=== PATIENT | male | born 1950 | race Caucasian/White ===

== ENCOUNTER 2016-10-11 08:39 | Inpatient (IN) | payer OTHER ==
[~2016-10-11] VITALS: Ht 165.1 cm; Wt 89.4 kg
[2016-10-11 08:40] VITALS: BP_SYST 133
[2016-10-11] MEDS ORDERED: NITROGLYCERIN LINGUAL 400 mCg/SPRAY SL SCH (09:00)
[2016-10-11] MEDS ORDERED: ASPIRIN 81 MG TAB.CHEW PO ONE (09:00)
[2016-10-11] MEDS ORDERED: NITROGLYCERIN LINGUAL 400 mCg/SPRAY ONE (09:07)
[2016-10-11 09:13] LABS: BASOPHILS % (AUTO) 0.4 % (0.0-2.0); EOSINOPHILS # (AUTO) 0.1 K/uL (0.0-0.4); EOSINOPHILS % (AUTO) 0.6 % (0.0-4.0); HEMATOCRIT 43.1 % (36-54); HEMOGLOBIN 14.2 g/dL (14.0-18.0); LYMPHOCYTES % (AUTO) 29.2 % (20.5-51.5); MEAN CORPUSCULAR HEMOGLOBIN 28 pg (27-31); MEAN CORPUSCULAR HGB CONC 33 % (32-36); MEAN CORPUSCULAR VOLUME 85 fL (79.0-98.0); MONOCYTES # (AUTO) 0.6 K/uL (0.0-1.0); MONOCYTES % (AUTO) 6.4 % (1.7-9.3); NEUTROPHILS # (AUTO) 6.4 K/uL (1.8-7.7); NEUTROPHILS % (AUTO) 63.4 % (40.0-70.0); PLATELET COUNT (AUTO) 263 K/uL (130-430); RED BLOOD CELL COUNT(AUTO) 5.04 MIL/uL (4.2-6.2); RED CELL DISTRIBUTION WIDTH 12.5 % (9.0-15.0); WHITE BLOOD COUNT (AUTO) 10.1 K/uL (4.8-10.8)
[2016-10-11 09:17] LABS: CALCIUM 8.4 mg/dL (8.4-11.0); CREATININE 0.93 mg/dL (0.55-1.30); POTASSIUM 3.6 mmol/L (3.5-5.1)
[2016-10-11 09:20] LABS: INR 1.1 (0.80-1.20); PROTHROMBIN TIME 11.4 SECS (9.5-12.5)
[2016-10-11 09:21] LABS: ALBUMIN 3.5 g/dL (3.4-4.8); TOTAL BILIRUBIN 1.7 mg/dL (0.0-1.0); TOTAL PROTEIN, SERUM 7.3 g/dL (6.4-8.3)
[2016-10-11] MEDS ORDERED: GLU500 PO (10:07)
[2016-10-11] MEDS ORDERED: LIP20 PO (10:07)
[2016-10-11 12:48] VITALS: BP_SYST 120
[2016-10-11] MEDS ORDERED: ACETAMINOPHEN 325 MG TABLET PO PRN (13:15)
[2016-10-11 16:32] VITALS: BP_SYST 110
[2016-10-11] MEDS: metFORMIN HCL 500 MG TABLET PO SCH (17:36)
[2016-10-11] MEDS: INSULIN REGULAR, HUMAN 100 UNITS/ML, 10 ML VIAL (novoLIN R) SUBCUT PRN ×2 (17:40→22:03)
[2016-10-11 20:00] VITALS: BP_SYST 108
[2016-10-12 00:46] VITALS: BP_SYST 99
[2016-10-12 04:00] VITALS: BP_SYST 113
[2016-10-12] MEDS: INSULIN REGULAR, HUMAN 100 UNITS/ML, 10 ML VIAL (novoLIN R) SUBCUT PRN ×3 (06:36→17:15)
[2016-10-12 08:00] VITALS: BP_SYST 114
[2016-10-12] MEDS: metFORMIN HCL 500 MG TABLET PO SCH ×3 (08:10→17:13)
[2016-10-12] MEDS ORDERED: ASPIRIN 325 MG TABLET PO SCH (09:00)
[2016-10-12] MEDS ORDERED: ATORVASTATIN 20 MG TABLET PO SCH (09:00)
[2016-10-12 12:00] VITALS: BP_SYST 121
[2016-10-12 16:00] VITALS: BP_SYST 114
[2016-10-12 18:02] VITALS: BP_SYST 121
== END 2016-10-12 19:20 | disposition home or self-care (01) | DRG 392 ==
LOC: SED 08:39 → STU 09:56
PROVIDERS: ADMIT Internal Medicine Hospice and Palliative Medicine; ATTEND Internal Medicine Hospice and Palliative Medicine
DX: K21.9 Gastro-esophageal reflux disease without esophagitis (principal); E11.9 Type 2 diabetes mellitus without complications; G89.29 Other chronic pain; I48.91 Unspecified atrial fibrillation; E78.5 Hyperlipidemia, unspecified; Z88.0 Allergy status to penicillin; M54.9 Dorsalgia, unspecified
CPT/HCPCS: 36415; 71010; 80053; 80061; 82962; 83880; 84484; 85025; 85610-TC; 85730-TC; 93005; 93306; 99285; J1815

== ENCOUNTER 2020-03-14 11:34 | Emergency (ER) | payer OTHER, SELFPAY ==
[~2020-03-14] VITALS: Ht 175.3 cm; Wt 99.8 kg
[~2020-03-14 11:34] MED LIST: GLU500 PO; LIP20 PO
[2020-03-14 11:35] VITALS: BP_SYST 115
--- NOTE | 2020-03-14 11:35 | NUR ---
PT TAKEN TO OUTSIDE TRIAGE TENT, TRIAGED AND WILL ASSUME CARE.
--- NOTE | 2020-03-14 11:50 | NUR ---
PT STATES 2 WEEKS WITH COVID SYMPTOMS, FATIGUE, HEADACHES, COUGH, FEVERS. STATES HE HAS NOT SEEN HIS PMD OR GOT TESTED FOR COVID.
--- NOTE | 2020-03-14 12:10 | NUR ---
DR OLMEDO EVALUATING PT IN TRIAGE TENT. AWAITING ORDERS
--- NOTE | 2020-03-14 13:24 | NUR ---
Patient given written and verbal discharge instructions and verbalizes understanding. ER MD discussed with patient the results and treatment provided. Patient in stable condition. ID arm band removed. Rx of PREDNISONE, MOTRIN given. Patient educated on pain management and to follow up with PMD. Pain Scale 0/10. Opportunity for questions provided and answered. Medication side effect fact sheet provided.
== END 2020-03-14 13:25 | disposition home or self-care (01) ==
LOC: SED 11:34
DX: J06.9 Acute upper respiratory infection, unspecified (principal); I10 Essential (primary) hypertension; E11.9 Type 2 diabetes mellitus without complications; E78.5 Hyperlipidemia, unspecified; Z88.0 Allergy status to penicillin; Z20.828 Contact with and (suspected) exposure to other viral communicable diseases
CPT/HCPCS: 99283; U0003

== ENCOUNTER 2020-03-20 05:06 | Inpatient (IN) | payer OTHER, SELFPAY ==
[~2020-03-20] VITALS: Ht 162.6 cm; Wt 90.7 kg
[2020-03-20 05:10] VITALS: BP_SYST 171
[2020-03-20 05:59] LABS: HEMATOCRIT 47.1 % (36-54)
[2020-03-20 06:04] LABS: BASOPHILS # (AUTO) 0.1 K/uL (0.0-0.2); BASOPHILS % (AUTO) 0.3 % (0.0-2.0); LYMPHOCYTES # (AUTO) 3.1 K/uL (1.0-5.5); LYMPHOCYTES % (AUTO) 12.9 % (20.5-51.5); MEAN CORPUSCULAR HEMOGLOBIN 28 pg (27-31); MEAN CORPUSCULAR HGB CONC 34 % (32-36); MEAN CORPUSCULAR VOLUME 82 fL (79.0-98.0); MONOCYTES # (AUTO) 0.9 K/uL (0.0-1.0); MONOCYTES % (AUTO) 3.6 % (1.7-9.3); NEUTROPHILS % (AUTO) 83.2 % (40.0-70.0); PLATELET COUNT (AUTO) 238 K/uL (130-430); RED BLOOD CELL COUNT(AUTO) 5.77 MIL/uL (4.2-6.2); RED CELL DISTRIBUTION WIDTH 13.9 % (9.0-15.0); WHITE BLOOD COUNT (AUTO) 24.1 K/uL (4.8-10.8)
[2020-03-20 06:20] LABS: INR 1.1 (0.80-1.20); PROTHROMBIN TIME 10.9 SECS (9.5-12.5)
[2020-03-20 06:27] LABS: CALCIUM 8.9 mg/dL (8.4-11.0); CREATININE 1.17 mg/dL (0.55-1.30); POTASSIUM 3.9 mmol/L (3.5-5.1)
[2020-03-20] MEDS ORDERED: VANCOMYCIN HCL 1,000 MG in NS 250 ML IV ONE (06:30)
[2020-03-20] MEDS ORDERED: LEVOFLOXACIN 500 MG/D5W 100 ML IV ONE ×2 (06:30→06:51)
[2020-03-20] MEDS ORDERED: NACL 0.9% 1,000 ML IV ONE (06:30)
[2020-03-20 06:34] LABS: ALBUMIN 2.9 g/dL (3.4-4.8); TOTAL BILIRUBIN 1.2 mg/dL (0.0-1.0)
[2020-03-20] MEDS ORDERED: ACETAMINOPHEN 325 MG TABLET PO PRN ×2 (07:30→09:45)
[2020-03-20] MEDS ORDERED: *LOVENOX 1MG/KG Q12H/PHARMACY XX ONE (07:30)
[2020-03-20] MEDS: DEXAMETHASONE SOD PHOSPHATE 10 MG/ML VIAL IVP SCH (08:37)
[2020-03-20] MEDS: ENOXAPARIN SODIUM 100 MG/ML SYRINGE SUBCUT SCH ×2 (09:00→20:28)
[2020-03-20] MEDS ORDERED: ONDANSETRON HCL 4 MG/2 ML VIAL IVP PRN (09:45)
[2020-03-20] MEDS: NORMAL SALINE 5 ML DISP.SYRIN IVF SCH ×2 (11:44→20:58)
[2020-03-20] MEDS ORDERED: INSULIN GLARGINE 100 UNITS/ML 10 ML VIAL ONE (11:49)
[2020-03-20] MEDS: INSULIN REGULAR, HUMAN 100 UNITS/ML, 10 ML VIAL (humuLIN R) SUBCUT PRN ×3 (11:51→20:55)
[2020-03-20] MEDS: metFORMIN HCL 500 MG TABLET PO SCH ×2 (15:50→21:31)
[2020-03-20] MEDS: FAMOTIDINE PF 20 MG/2 ML VIAL IVP SCH (20:26)
[2020-03-20] MEDS: ASCORBIC ACID 500 MG TABLET PO SCH (20:27)
[2020-03-20] MEDS ORDERED: metFORMIN HCL 500 MG TABLET ONE (21:29)
[2020-03-21] MEDS: NORMAL SALINE 5 ML DISP.SYRIN IVF SCH ×3 (06:08→22:00)
[2020-03-21] MEDS: ENOXAPARIN SODIUM 100 MG/ML SYRINGE SUBCUT SCH ×2 (08:29→20:31)
[2020-03-21] MEDS: ASCORBIC ACID 500 MG TABLET PO SCH ×2 (08:30→20:40)
[2020-03-21] MEDS: FAMOTIDINE PF 20 MG/2 ML VIAL IVP SCH ×2 (08:30→20:39)
[2020-03-21] MEDS: ATORVASTATIN 20 MG TABLET PO SCH (08:30)
[2020-03-21] MEDS: DEXAMETHASONE SOD PHOSPHATE 10 MG/ML VIAL IVP SCH (08:31)
[2020-03-21] MEDS: CHOLECALCIFEROL (VITAMIN D3) 5,000 UNIT TABLET PO SCH (08:33)
[2020-03-21] MEDS: metFORMIN HCL 500 MG TABLET PO SCH ×3 (09:42→20:40)
[2020-03-21] MEDS: THIAMINE HCL 100 MG TABLET PO SCH (09:42)
[2020-03-21] MEDS: INSULIN GLARGINE 100 UNITS/ML 10 ML VIAL SUBCUT SCH (09:45)
[2020-03-21] MEDS ORDERED: INSULIN REGULAR, HUMAN 10 UNITS/0.1 ML INJ ONE ×2 (11:15→22:10)
[2020-03-21] MEDS: INSULIN REGULAR, HUMAN 100 UNITS/ML, 10 ML VIAL (humuLIN R) SUBCUT PRN ×3 (11:24→22:09)
[2020-03-21 11:25] LABS: BASOPHILS % (AUTO) 0.1 % (0.0-2.0); EOSINOPHILS % (AUTO) 0.1 % (0.0-4.0); HEMOGLOBIN 13.9 g/dL (14.0-18.0); LYMPHOCYTES # (AUTO) 0.7 K/uL (1.0-5.5); LYMPHOCYTES % (AUTO) 4.6 % (20.5-51.5); MEAN CORPUSCULAR HEMOGLOBIN 27 pg (27-31); MEAN CORPUSCULAR HGB CONC 33 % (32-36); MEAN CORPUSCULAR VOLUME 82 fL (79.0-98.0); MONOCYTES # (AUTO) 0.3 K/uL (0.0-1.0); NEUTROPHILS # (AUTO) 14.6 K/uL (1.8-7.7); NEUTROPHILS % (AUTO) 93.2 % (40.0-70.0); PLATELET COUNT (AUTO) 202 K/uL (130-430); RED BLOOD CELL COUNT(AUTO) 5.12 MIL/uL (4.2-6.2); RED CELL DISTRIBUTION WIDTH 13.9 % (9.0-15.0); WHITE BLOOD COUNT (AUTO) 15.7 K/uL (4.8-10.8)
[2020-03-21 11:28] LABS: ALBUMIN 2.2 g/dL (3.4-4.8); CALCIUM 8.3 mg/dL (8.4-11.0); CREATININE 0.82 mg/dL (0.55-1.30); POTASSIUM 4.3 mmol/L (3.5-5.1); TOTAL BILIRUBIN 0.9 mg/dL (0.0-1.0)
[2020-03-21] MEDS: MEROPENEM 1 GM in NS 100 ML IV SCH (20:41)
[2020-03-22 05:25] LABS: BASOPHILS % (AUTO) 0.3 % (0.0-2.0); HEMATOCRIT 39.3 % (36-54); HEMOGLOBIN 13.1 g/dL (14.0-18.0); LYMPHOCYTES % (AUTO) 8.1 % (20.5-51.5); MEAN CORPUSCULAR HEMOGLOBIN 27 pg (27-31); MEAN CORPUSCULAR HGB CONC 33 % (32-36); MEAN CORPUSCULAR VOLUME 81 fL (79.0-98.0); MONOCYTES # (AUTO) 0.3 K/uL (0.0-1.0); MONOCYTES % (AUTO) 2.6 % (1.7-9.3); NEUTROPHILS # (AUTO) 10.5 K/uL (1.8-7.7); PLATELET COUNT (AUTO) 251 K/uL (130-430); RED BLOOD CELL COUNT(AUTO) 4.83 MIL/uL (4.2-6.2); RED CELL DISTRIBUTION WIDTH 14.5 % (9.0-15.0); WHITE BLOOD COUNT (AUTO) 11.8 K/uL (4.8-10.8)
[2020-03-22] MEDS: MEROPENEM 1 GM in NS 100 ML IV SCH ×3 (05:41→22:14)
[2020-03-22 05:50] LABS: ALBUMIN 2.2 g/dL (3.4-4.8); CALCIUM 8.5 mg/dL (8.4-11.0); CREATININE 0.82 mg/dL (0.55-1.30); POTASSIUM 4.2 mmol/L (3.5-5.1); TOTAL BILIRUBIN 0.7 mg/dL (0.0-1.0)
[2020-03-22 06:02] LABS: C-REACTIVE PROTEIN QUANT 18.4 mg/dL (0-0.5)
[2020-03-22] MEDS: NORMAL SALINE 5 ML DISP.SYRIN IVF SCH ×3 (06:34→22:23)
[2020-03-22 07:27] VITALS: BP_SYST 116
[2020-03-22] MEDS: DEXAMETHASONE SOD PHOSPHATE 10 MG/ML VIAL IVP SCH (09:17)
[2020-03-22] MEDS: FAMOTIDINE PF 20 MG/2 ML VIAL IVP SCH ×2 (09:18→22:11)
[2020-03-22] MEDS: metFORMIN HCL 500 MG TABLET PO SCH ×3 (09:22→22:11)
[2020-03-22] MEDS: ASCORBIC ACID 500 MG TABLET PO SCH ×2 (09:23→22:12)
[2020-03-22] MEDS: CHOLECALCIFEROL (VITAMIN D3) 5,000 UNIT TABLET PO SCH (09:23)
[2020-03-22] MEDS: THIAMINE HCL 100 MG TABLET PO SCH (09:23)
[2020-03-22] MEDS: ATORVASTATIN 20 MG TABLET PO SCH (09:23)
[2020-03-22] MEDS ORDERED: INSULIN GLARGINE 100 UNITS/ML 10 ML VIAL ONE (09:30)
[2020-03-22] MEDS: ENOXAPARIN SODIUM 100 MG/ML SYRINGE SUBCUT SCH ×2 (09:32→22:13)
[2020-03-22] MEDS: INSULIN GLARGINE 100 UNITS/ML 10 ML VIAL SUBCUT SCH (09:34)
[2020-03-22] MEDS: INSULIN REGULAR, HUMAN 100 UNITS/ML, 10 ML VIAL (humuLIN R) SUBCUT PRN (17:34)
[2020-03-23] MEDS: NORMAL SALINE 5 ML DISP.SYRIN IVF SCH ×3 (06:13→23:06)
[2020-03-23] MEDS: MEROPENEM 1 GM in NS 100 ML IV SCH ×3 (06:14→23:07)
[2020-03-23 07:51] LABS: BASOPHILS % (AUTO) 0.3 % (0.0-2.0); EOSINOPHILS # (AUTO) 0.1 K/uL (0.0-0.4); EOSINOPHILS % (AUTO) 0.5 % (0.0-4.0); HEMATOCRIT 41.7 % (36-54); HEMOGLOBIN 13.9 g/dL (14.0-18.0); LYMPHOCYTES % (AUTO) 6.7 % (20.5-51.5); MEAN CORPUSCULAR HEMOGLOBIN 27 pg (27-31); MEAN CORPUSCULAR HGB CONC 33 % (32-36); MEAN CORPUSCULAR VOLUME 82 fL (79.0-98.0); MONOCYTES # (AUTO) 0.4 K/uL (0.0-1.0); NEUTROPHILS # (AUTO) 12.9 K/uL (1.8-7.7); NEUTROPHILS % (AUTO) 89.5 % (40.0-70.0); PLATELET COUNT (AUTO) 327 K/uL (130-430); RED BLOOD CELL COUNT(AUTO) 5.09 MIL/uL (4.2-6.2); RED CELL DISTRIBUTION WIDTH 14.2 % (9.0-15.0); WHITE BLOOD COUNT (AUTO) 14.4 K/uL (4.8-10.8)
[2020-03-23 08:26] LABS: ALBUMIN 2.2 g/dL (3.4-4.8); CALCIUM 8.6 mg/dL (8.4-11.0); CREATININE 0.82 mg/dL (0.55-1.30); POTASSIUM 3.9 mmol/L (3.5-5.1); TOTAL BILIRUBIN 0.9 mg/dL (0.0-1.0)
[2020-03-23] MEDS: metFORMIN HCL 500 MG TABLET PO SCH ×3 (08:32→23:03)
[2020-03-23] MEDS: FAMOTIDINE PF 20 MG/2 ML VIAL IVP SCH ×2 (08:32→23:02)
[2020-03-23] MEDS: DEXAMETHASONE SOD PHOSPHATE 10 MG/ML VIAL IVP SCH (08:32)
[2020-03-23] MEDS: THIAMINE HCL 100 MG TABLET PO SCH (08:33)
[2020-03-23] MEDS: ASCORBIC ACID 500 MG TABLET PO SCH ×2 (08:33→23:03)
[2020-03-23] MEDS: ATORVASTATIN 20 MG TABLET PO SCH (08:33)
[2020-03-23] MEDS: ENOXAPARIN SODIUM 100 MG/ML SYRINGE SUBCUT SCH ×2 (08:34→23:05)
[2020-03-23] MEDS ORDERED: INSULIN GLARGINE 100 UNITS/ML 10 ML VIAL ONE (08:38)
[2020-03-23] MEDS: INSULIN GLARGINE 100 UNITS/ML 10 ML VIAL SUBCUT SCH (08:39)
[2020-03-23] MEDS: CHOLECALCIFEROL (VITAMIN D3) 5,000 UNIT TABLET PO SCH (09:11)
[2020-03-23] MEDS: INSULIN REGULAR, HUMAN 100 UNITS/ML, 10 ML VIAL (humuLIN R) SUBCUT PRN ×2 (11:28→16:39)
[2020-03-24] MEDS ORDERED: LORazepam 2 MG/ML VIAL ONE ×2 (03:58→04:44)
[2020-03-24] MEDS ORDERED: LORazepam 2 MG/ML VIAL IM ONE (04:00)
[2020-03-24] MEDS ORDERED: LORazepam 2 MG/ML VIAL IVP ONE (05:00)
[2020-03-24] MEDS ORDERED: KETAMINE 30 MG/3 ML SYRINGE ONE (05:24)
[2020-03-24] MEDS ORDERED: KETAMINE 30 MG/3 ML SYRINGE 30 MG in NS 100 ML IV ONE (05:30)
[2020-03-24] MEDS: NORMAL SALINE 5 ML DISP.SYRIN IVF SCH ×3 (05:49→21:21)
[2020-03-24] MEDS: MEROPENEM 1 GM in NS 100 ML IV SCH ×3 (05:54→21:18)
[2020-03-24] MEDS ORDERED: HALOPERIDOL LACTATE 5 MG/ML VIAL IVP ONE (07:15)
[2020-03-24] MEDS ORDERED: HALOPERIDOL LACTATE 5 MG/ML VIAL ONE (07:25)
[2020-03-24] MEDS: ATORVASTATIN 20 MG TABLET PO SCH (08:10)
[2020-03-24] MEDS: metFORMIN HCL 500 MG TABLET PO SCH ×3 (08:11→21:00)
[2020-03-24 08:12] LABS: BASOPHILS # (AUTO) 0.1 K/uL (0.0-0.2); BASOPHILS % (AUTO) 0.4 % (0.0-2.0); EOSINOPHILS % (AUTO) 0.2 % (0.0-4.0); HEMATOCRIT 44.4 % (36-54); HEMOGLOBIN 14.6 g/dL (14.0-18.0); LYMPHOCYTES # (AUTO) 1.2 K/uL (1.0-5.5); LYMPHOCYTES % (AUTO) 6.2 % (20.5-51.5); MEAN CORPUSCULAR HEMOGLOBIN 27 pg (27-31); MEAN CORPUSCULAR HGB CONC 33 % (32-36); MEAN CORPUSCULAR VOLUME 83 fL (79.0-98.0); MONOCYTES # (AUTO) 0.6 K/uL (0.0-1.0); NEUTROPHILS # (AUTO) 17.3 K/uL (1.8-7.7); NEUTROPHILS % (AUTO) 90.2 % (40.0-70.0); PLATELET COUNT (AUTO) 391 K/uL (130-430); RED BLOOD CELL COUNT(AUTO) 5.34 MIL/uL (4.2-6.2); RED CELL DISTRIBUTION WIDTH 14.4 % (9.0-15.0); WHITE BLOOD COUNT (AUTO) 19.2 K/uL (4.8-10.8)
[2020-03-24] MEDS: THIAMINE HCL 100 MG TABLET PO SCH (08:13)
[2020-03-24] MEDS: ASCORBIC ACID 500 MG TABLET PO SCH ×2 (08:13→21:00)
[2020-03-24] MEDS: FAMOTIDINE PF 20 MG/2 ML VIAL IVP SCH ×2 (08:13→21:08)
[2020-03-24] MEDS: DEXAMETHASONE SOD PHOSPHATE 10 MG/ML VIAL IVP SCH (08:13)
[2020-03-24] MEDS: CHOLECALCIFEROL (VITAMIN D3) 5,000 UNIT TABLET PO SCH (08:14)
[2020-03-24] MEDS: ENOXAPARIN SODIUM 100 MG/ML SYRINGE SUBCUT SCH ×2 (08:15→21:10)
[2020-03-24] MEDS: INSULIN GLARGINE 100 UNITS/ML 10 ML VIAL SUBCUT SCH (08:28)
[2020-03-24 08:30] LABS: ALBUMIN 2.5 g/dL (3.4-4.8); CALCIUM 8.9 mg/dL (8.4-11.0); CREATININE 1.2 mg/dL (0.55-1.30); POTASSIUM 3.8 mmol/L (3.5-5.1); TOTAL BILIRUBIN 1.4 mg/dL (0.0-1.0)
[2020-03-24] MEDS: INSULIN REGULAR, HUMAN 100 UNITS/ML, 10 ML VIAL (humuLIN R) SUBCUT PRN ×3 (08:30→16:11)
[2020-03-24] MEDS: DEXMEDETOMIDINE HCL 200 MCG in NS 48 ML IV PRN ×2 (10:15→14:57)
[2020-03-24 10:18] LABS: INR 1.2 (0.80-1.20); PROTHROMBIN TIME 11.8 SECS (9.5-12.5)
[2020-03-24 10:52] LABS: C-REACTIVE PROTEIN QUANT 12.2 mg/dL (0-0.5)
[2020-03-24] MEDS ORDERED: NACL 0.9% 1,000 ML IV ONE (14:30)
[2020-03-24] MEDS: NACL 0.9% 1,000 ML IV SCH (14:58)
[2020-03-24] MEDS: LORazepam 2 MG/ML VIAL IVP PRN (17:55)
[2020-03-24] MEDS: DEXMEDETOMIDINE HCL 400 MCG in NS 96 ML IV PRN (19:28)
[2020-03-25] VITALS (29 sets, daily range): BP systolic 80–153
[2020-03-25] MEDS: DEXMEDETOMIDINE HCL 400 MCG in NS 96 ML IV PRN (00:18)
[2020-03-25] MEDS: NACL 0.9% 1,000 ML IV SCH ×2 (00:18→10:14)
[2020-03-25] MEDS ORDERED: LORazepam 2 MG/ML VIAL ONE (03:27)
[2020-03-25] MEDS ORDERED: MIDAZOLAM HCL IN 0.9 % NACL/PF 50 ML IV PRN (04:15)
[2020-03-25] MEDS ORDERED: PROPOFOL DRIP 100 ML IV PRN ×2 (04:15→05:15)
[2020-03-25] MEDS ORDERED: LORazepam 2 MG/ML VIAL IVP ONE (04:15)
[2020-03-25] MEDS ORDERED: NOREPINEPHRINE BITARTRATE 4 MG in NS 246 ML IV PRN (04:30)
[2020-03-25] MEDS: NOREPINEPHRINE BITARTRATE 4 MG in NS 246 ML IV PRN (05:10)
[2020-03-25] MEDS: MEROPENEM 1 GM in NS 100 ML IV SCH ×3 (08:41→21:49)
[2020-03-25] MEDS: CHOLECALCIFEROL (VITAMIN D3) 5,000 UNIT TABLET PO SCH (08:42)
[2020-03-25] MEDS: NORMAL SALINE 5 ML DISP.SYRIN IVF SCH ×3 (08:42→22:00)
[2020-03-25] MEDS: ASCORBIC ACID 500 MG TABLET PO SCH (08:42)
[2020-03-25] MEDS: ATORVASTATIN 20 MG TABLET PO SCH (08:43)
[2020-03-25] MEDS: metFORMIN HCL 500 MG TABLET PO SCH ×2 (08:43→14:10)
[2020-03-25] MEDS: THIAMINE HCL 100 MG TABLET PO SCH (08:43)
[2020-03-25] MEDS: ENOXAPARIN SODIUM 100 MG/ML SYRINGE SUBCUT SCH ×2 (08:44→21:28)
[2020-03-25] MEDS: INSULIN GLARGINE 100 UNITS/ML 10 ML VIAL SUBCUT SCH (08:45)
[2020-03-25] MEDS: DEXAMETHASONE SOD PHOSPHATE 10 MG/ML VIAL IVP SCH (08:47)
[2020-03-25] MEDS: FAMOTIDINE PF 20 MG/2 ML VIAL IVP SCH ×2 (08:48→21:26)
[2020-03-25 08:51] LABS: ALBUMIN 1.8 g/dL (3.4-4.8); CALCIUM 7.8 mg/dL (8.4-11.0); CREATININE 0.7 mg/dL (0.55-1.30); POTASSIUM 4.2 mmol/L (3.5-5.1); TOTAL BILIRUBIN 0.6 mg/dL (0.0-1.0)
[2020-03-25] MEDS ORDERED: ETOMIDATE 20 MG/ 10 ML VIAL (AMIDATE) IVP ONE (09:08)
[2020-03-25] MEDS ORDERED: ROCURONIUM BROMIDE 10 MG/ML (ZEMURON) IV ONE (09:08)
[2020-03-25 09:10] LABS: BASOPHILS % (AUTO) 0.1 % (0.0-2.0); EOSINOPHILS % (AUTO) 0.3 % (0.0-4.0); HEMATOCRIT 36.2 % (36-54); LYMPHOCYTES # (AUTO) 0.9 K/uL (1.0-5.5); LYMPHOCYTES % (AUTO) 6.8 % (20.5-51.5); MEAN CORPUSCULAR HEMOGLOBIN 27 pg (27-31); MEAN CORPUSCULAR HGB CONC 33 % (32-36); MEAN CORPUSCULAR VOLUME 83 fL (79.0-98.0); MONOCYTES # (AUTO) 0.2 K/uL (0.0-1.0); MONOCYTES % (AUTO) 1.5 % (1.7-9.3); NEUTROPHILS # (AUTO) 12.7 K/uL (1.8-7.7); NEUTROPHILS % (AUTO) 91.3 % (40.0-70.0); PLATELET COUNT (AUTO) 271 K/uL (130-430); RED BLOOD CELL COUNT(AUTO) 4.39 MIL/uL (4.2-6.2); RED CELL DISTRIBUTION WIDTH 14.5 % (9.0-15.0)
[2020-03-25 09:33] LABS: WHITE BLOOD COUNT (AUTO) 13.9 K/uL (4.8-10.8)
[2020-03-25] MEDS: MORPHINE I.V. DRIP 100 ML IV PRN (10:13)
[2020-03-25] MEDS: MIDAZOLAM HCL IN 0.9 % NACL/PF 50 ML IV PRN (10:13)
[2020-03-25] MEDS ORDERED: NS 250 ML IV ONE (11:30)
[2020-03-25] MEDS: LORazepam 2 MG/ML VIAL IVP PRN ×2 (12:02→20:23)
[2020-03-25] MEDS ORDERED: NS 500 ML IV ONE ×2 (18:00→23:30)
[2020-03-25] MEDS ORDERED: NS 500 ML IV PRN (18:30)
[2020-03-25] MEDS ORDERED: COMMUNICATION ORDER XX ONE (21:00)
[2020-03-25] MEDS ORDERED: ACETAMINOPHEN CHILDREN'S 160 MG/5 ML ORAL.SUSP NG PRN (21:15)
[2020-03-25] MEDS: metFORMIN HCL 500 MG TABLET NG SCH (21:26)
[2020-03-25] MEDS: ASCORBIC ACID 500 MG TABLET NG SCH (21:27)
[2020-03-25] MEDS ORDERED: VASOPRESSIN 20 UNITS in NS 99 ML IV PRN (22:45)
[2020-03-25] MEDS ORDERED: NS 500 ML IV SCH (22:45)
[2020-03-25] MEDS: levETIRAcetam 500 MG in NS 100 ML IV SCH (23:31)
[2020-03-26] VITALS (32 sets, daily range): BP systolic 91–132
[2020-03-26] MEDS: MORPHINE I.V. DRIP 100 ML IV PRN (02:07)
[2020-03-26] MEDS: MEROPENEM 1 GM in NS 100 ML IV SCH ×3 (06:05→21:37)
[2020-03-26] MEDS: NORMAL SALINE 5 ML DISP.SYRIN IVF SCH ×3 (06:07→22:00)
[2020-03-26 07:42] LABS: BASOPHILS % (AUTO) 0.3 % (0.0-2.0); EOSINOPHILS # (AUTO) 0.2 K/uL (0.0-0.4); EOSINOPHILS % (AUTO) 1.5 % (0.0-4.0); HEMATOCRIT 39.1 % (36-54); HEMOGLOBIN 12.7 g/dL (14.0-18.0); LYMPHOCYTES # (AUTO) 0.6 K/uL (1.0-5.5); LYMPHOCYTES % (AUTO) 4.7 % (20.5-51.5); MEAN CORPUSCULAR HEMOGLOBIN 27 pg (27-31); MEAN CORPUSCULAR HGB CONC 33 % (32-36); MEAN CORPUSCULAR VOLUME 83 fL (79.0-98.0); MONOCYTES # (AUTO) 0.3 K/uL (0.0-1.0); MONOCYTES % (AUTO) 2.1 % (1.7-9.3); NEUTROPHILS # (AUTO) 12.4 K/uL (1.8-7.7); NEUTROPHILS % (AUTO) 91.4 % (40.0-70.0); PLATELET COUNT (AUTO) 343 K/uL (130-430); RED BLOOD CELL COUNT(AUTO) 4.68 MIL/uL (4.2-6.2); WHITE BLOOD COUNT (AUTO) 13.5 K/uL (4.8-10.8)
[2020-03-26 08:20] LABS: ALBUMIN 1.8 g/dL (3.4-4.8); CALCIUM 7.8 mg/dL (8.4-11.0); CREATININE 1.09 mg/dL (0.55-1.30); POTASSIUM 4.3 mmol/L (3.5-5.1); TOTAL BILIRUBIN 0.5 mg/dL (0.0-1.0)
[2020-03-26] MEDS ORDERED: ENOXAPARIN SODIUM 40 MG/0.4 ML SYRINGE SUBCUT SCH (09:00)
[2020-03-26] MEDS: levETIRAcetam 500 MG in NS 100 ML IV SCH ×2 (09:26→21:37)
[2020-03-26] MEDS: MIDAZOLAM HCL IN 0.9 % NACL/PF 50 ML IV PRN ×2 (09:27→17:51)
[2020-03-26] MEDS: INSULIN GLARGINE 100 UNITS/ML 10 ML VIAL SUBCUT SCH (09:29)
[2020-03-26] MEDS: ATORVASTATIN 20 MG TABLET NG SCH (09:30)
[2020-03-26] MEDS: metFORMIN HCL 500 MG TABLET NG SCH ×3 (09:30→21:38)
[2020-03-26] MEDS: FAMOTIDINE PF 20 MG/2 ML VIAL IVP SCH ×2 (09:31→21:39)
[2020-03-26] MEDS: DEXAMETHASONE SOD PHOSPHATE 10 MG/ML VIAL IVP SCH (09:31)
[2020-03-26] MEDS: CHOLECALCIFEROL (VITAMIN D3) 5,000 UNIT TABLET NG SCH (09:31)
[2020-03-26] MEDS: ASCORBIC ACID 500 MG TABLET NG SCH ×2 (09:31→21:38)
[2020-03-26] MEDS: THIAMINE HCL 100 MG TABLET NG SCH (09:31)
[2020-03-26] MEDS: NACL 0.9% 1,000 ML IV SCH ×4 (09:32→20:00)
[2020-03-26 11:22] LABS: INR 1.1 (0.80-1.20); PROTHROMBIN TIME 11.1 SECS (9.5-12.5)
[2020-03-26] MEDS: INSULIN REGULAR, HUMAN 100 UNITS/ML, 10 ML VIAL (humuLIN R) SUBCUT PRN ×2 (12:38→17:51)
[2020-03-26] MEDS: NOREPINEPHRINE BITARTRATE 4 MG in NS 246 ML IV PRN (18:57)
[2020-03-27] VITALS (29 sets, daily range): BP systolic 92–124
[2020-03-27] MEDS: MIDAZOLAM HCL IN 0.9 % NACL/PF 50 ML IV PRN ×2 (01:56→17:39)
[2020-03-27] MEDS: MORPHINE I.V. DRIP 100 ML IV PRN (02:00)
[2020-03-27] MEDS: INSULIN REGULAR, HUMAN 100 UNITS/ML, 10 ML VIAL (humuLIN R) SUBCUT PRN ×3 (02:04→17:23)
[2020-03-27] MEDS: NORMAL SALINE 5 ML DISP.SYRIN IVF SCH ×3 (06:00→22:19)
[2020-03-27] MEDS: MEROPENEM 1 GM in NS 100 ML IV SCH ×3 (06:53→22:00)
[2020-03-27 07:22] LABS: BASOPHILS % (AUTO) 0.4 % (0.0-2.0); HEMATOCRIT 35.6 % (36-54); HEMOGLOBIN 11.5 g/dL (14.0-18.0); LYMPHOCYTES # (AUTO) 0.6 K/uL (1.0-5.5); LYMPHOCYTES % (AUTO) 5.2 % (20.5-51.5); MEAN CORPUSCULAR HEMOGLOBIN 27 pg (27-31); MEAN CORPUSCULAR HGB CONC 32 % (32-36); MEAN CORPUSCULAR VOLUME 84 fL (79.0-98.0); MONOCYTES # (AUTO) 0.3 K/uL (0.0-1.0); NEUTROPHILS # (AUTO) 10.5 K/uL (1.8-7.7); NEUTROPHILS % (AUTO) 91.4 % (40.0-70.0); PLATELET COUNT (AUTO) 316 K/uL (130-430); RED BLOOD CELL COUNT(AUTO) 4.23 MIL/uL (4.2-6.2); RED CELL DISTRIBUTION WIDTH 14.9 % (9.0-15.0); WHITE BLOOD COUNT (AUTO) 11.4 K/uL (4.8-10.8)
[2020-03-27 07:49] LABS: ALBUMIN 1.6 g/dL (3.4-4.8); CALCIUM 7.7 mg/dL (8.4-11.0); CREATININE 1.19 mg/dL (0.55-1.30); POTASSIUM 4.3 mmol/L (3.5-5.1); TOTAL BILIRUBIN 0.5 mg/dL (0.0-1.0)
[2020-03-27] MEDS: levETIRAcetam 500 MG in NS 100 ML IV SCH ×2 (09:18→22:18)
[2020-03-27] MEDS: ENOXAPARIN SODIUM 40 MG/0.4 ML SYRINGE SUBCUT SCH (09:21)
[2020-03-27] MEDS: INSULIN GLARGINE 100 UNITS/ML 10 ML VIAL SUBCUT SCH (09:23)
[2020-03-27] MEDS: ATORVASTATIN 20 MG TABLET NG SCH (09:24)
[2020-03-27] MEDS: CHOLECALCIFEROL (VITAMIN D3) 5,000 UNIT TABLET NG SCH (09:24)
[2020-03-27] MEDS: DEXAMETHASONE SOD PHOSPHATE 10 MG/ML VIAL IVP SCH (09:24)
[2020-03-27] MEDS: metFORMIN HCL 500 MG TABLET NG SCH ×3 (09:24→22:19)
[2020-03-27] MEDS: ASCORBIC ACID 500 MG TABLET NG SCH ×2 (09:24→22:18)
[2020-03-27] MEDS: THIAMINE HCL 100 MG TABLET NG SCH (09:24)
[2020-03-27] MEDS: FAMOTIDINE PF 20 MG/2 ML VIAL IVP SCH ×2 (09:24→22:18)
[2020-03-27] MEDS: NACL 0.9% 1,000 ML IV SCH ×2 (11:50→22:19)
[2020-03-27] MEDS ORDERED: ACETAMINOPHEN 650 MG/20.3 ML UDC NG PRN (12:45)
[2020-03-28] VITALS (30 sets, daily range): BP systolic 99–123
[2020-03-28] MEDS: INSULIN REGULAR, HUMAN 100 UNITS/ML, 10 ML VIAL (humuLIN R) SUBCUT PRN ×4 (00:13→17:18)
[2020-03-28] MEDS: MEROPENEM 1 GM in NS 100 ML IV SCH ×3 (06:13→21:38)
[2020-03-28] MEDS: NORMAL SALINE 5 ML DISP.SYRIN IVF SCH ×3 (06:14→22:00)
[2020-03-28] MEDS: MIDAZOLAM HCL IN 0.9 % NACL/PF 50 ML IV PRN ×2 (06:31→13:29)
[2020-03-28] MEDS: MORPHINE I.V. DRIP 100 ML IV PRN (06:32)
[2020-03-28] MEDS: NACL 0.9% 1,000 ML IV SCH ×2 (08:05→18:30)
[2020-03-28] MEDS: levETIRAcetam 500 MG in NS 100 ML IV SCH ×2 (08:05→21:35)
[2020-03-28] MEDS: DEXAMETHASONE SOD PHOSPHATE 10 MG/ML VIAL IVP SCH (08:05)
[2020-03-28] MEDS: FAMOTIDINE PF 20 MG/2 ML VIAL IVP SCH ×2 (08:05→21:36)
[2020-03-28] MEDS: THIAMINE HCL 100 MG TABLET NG SCH (08:05)
[2020-03-28] MEDS: ATORVASTATIN 20 MG TABLET NG SCH (08:05)
[2020-03-28] MEDS: ASCORBIC ACID 500 MG TABLET NG SCH ×2 (08:05→21:37)
[2020-03-28] MEDS: CHOLECALCIFEROL (VITAMIN D3) 5,000 UNIT TABLET NG SCH (08:05)
[2020-03-28] MEDS: ENOXAPARIN SODIUM 40 MG/0.4 ML SYRINGE SUBCUT SCH (08:06)
[2020-03-28] MEDS: INSULIN GLARGINE 100 UNITS/ML 10 ML VIAL SUBCUT SCH (08:07)
[2020-03-28] MEDS: metFORMIN HCL 500 MG TABLET NG SCH ×3 (10:24→21:37)
[2020-03-29] VITALS (28 sets, daily range): BP systolic 95–117
[2020-03-29] MEDS: MORPHINE I.V. DRIP 100 ML IV PRN (02:26)
[2020-03-29] MEDS: MIDAZOLAM HCL IN 0.9 % NACL/PF 50 ML IV PRN ×2 (02:28→12:32)
[2020-03-29] MEDS: INSULIN REGULAR, HUMAN 100 UNITS/ML, 10 ML VIAL (humuLIN R) SUBCUT PRN ×3 (02:29→23:56)
[2020-03-29] MEDS: NORMAL SALINE 5 ML DISP.SYRIN IVF SCH ×3 (06:00→23:06)
[2020-03-29] MEDS: MEROPENEM 1 GM in NS 100 ML IV SCH ×2 (06:59→15:50)
[2020-03-29] MEDS: FAMOTIDINE PF 20 MG/2 ML VIAL IVP SCH ×2 (09:19→21:00)
[2020-03-29] MEDS: THIAMINE HCL 100 MG TABLET NG SCH (09:20)
[2020-03-29] MEDS: metFORMIN HCL 500 MG TABLET NG SCH ×3 (09:20→21:00)
[2020-03-29] MEDS: ASCORBIC ACID 500 MG TABLET NG SCH ×2 (09:20→21:00)
[2020-03-29] MEDS: DEXAMETHASONE SOD PHOSPHATE 10 MG/ML VIAL IVP SCH (09:20)
[2020-03-29] MEDS: CHOLECALCIFEROL (VITAMIN D3) 5,000 UNIT TABLET NG SCH (09:21)
[2020-03-29] MEDS: ATORVASTATIN 20 MG TABLET NG SCH (09:21)
[2020-03-29] MEDS: ENOXAPARIN SODIUM 40 MG/0.4 ML SYRINGE SUBCUT SCH (09:22)
[2020-03-29] MEDS: levETIRAcetam 500 MG in NS 100 ML IV SCH ×2 (09:22→21:00)
[2020-03-29] MEDS: INSULIN GLARGINE 100 UNITS/ML 10 ML VIAL SUBCUT SCH (09:29)
[2020-03-29] MEDS: NACL 0.9% 1,000 ML IV SCH ×3 (12:28→23:30)
[2020-03-30] VITALS (29 sets, daily range): BP systolic 97–127
[2020-03-30] MEDS: NORMAL SALINE 5 ML DISP.SYRIN IVF SCH ×3 (06:26→21:55)
[2020-03-30 07:25] LABS: BASOPHILS # (AUTO) 0.1 K/uL (0.0-0.2); BASOPHILS % (AUTO) 0.8 % (0.0-2.0); EOSINOPHILS # (AUTO) 0.1 K/uL (0.0-0.4); EOSINOPHILS % (AUTO) 1.1 % (0.0-4.0); HEMATOCRIT 38.3 % (36-54); HEMOGLOBIN 12.2 g/dL (14.0-18.0); MEAN CORPUSCULAR HEMOGLOBIN 27 pg (27-31); MEAN CORPUSCULAR HGB CONC 32 % (32-36); MEAN CORPUSCULAR VOLUME 86 fL (79.0-98.0); MONOCYTES # (AUTO) 0.3 K/uL (0.0-1.0); MONOCYTES % (AUTO) 2.5 % (1.7-9.3); NEUTROPHILS # (AUTO) 9.3 K/uL (1.8-7.7); NEUTROPHILS % (AUTO) 86.6 % (40.0-70.0); PLATELET COUNT (AUTO) 237 K/uL (130-430); RED BLOOD CELL COUNT(AUTO) 4.45 MIL/uL (4.2-6.2); RED CELL DISTRIBUTION WIDTH 15.9 % (9.0-15.0); WHITE BLOOD COUNT (AUTO) 10.8 K/uL (4.8-10.8)
[2020-03-30 07:35] LABS: ALBUMIN 1.6 g/dL (3.4-4.8); CALCIUM 8.1 mg/dL (8.4-11.0); CREATININE 1.36 mg/dL (0.55-1.30); PHOSPHORUS 2.6 mg/dL (2.7-4.5); TOTAL BILIRUBIN 0.4 mg/dL (0.0-1.0)
[2020-03-30] MEDS: MIDAZOLAM HCL IN 0.9 % NACL/PF 50 ML IV PRN ×3 (09:17→18:21)
[2020-03-30] MEDS: THIAMINE HCL 100 MG TABLET NG SCH (09:55)
[2020-03-30] MEDS: ASCORBIC ACID 500 MG TABLET NG SCH ×2 (09:55→21:55)
[2020-03-30] MEDS: ATORVASTATIN 20 MG TABLET NG SCH (09:55)
[2020-03-30] MEDS: metFORMIN HCL 500 MG TABLET NG SCH ×3 (09:56→21:55)
[2020-03-30] MEDS: DEXAMETHASONE SOD PHOSPHATE 10 MG/ML VIAL IVP SCH (09:56)
[2020-03-30] MEDS: CHOLECALCIFEROL (VITAMIN D3) 5,000 UNIT TABLET NG SCH (09:56)
[2020-03-30] MEDS: FAMOTIDINE PF 20 MG/2 ML VIAL IVP SCH ×2 (09:56→21:54)
[2020-03-30] MEDS: ENOXAPARIN SODIUM 40 MG/0.4 ML SYRINGE SUBCUT SCH (10:14)
[2020-03-30] MEDS: levETIRAcetam 500 MG in NS 100 ML IV SCH ×2 (10:14→21:49)
[2020-03-30] MEDS: CEFEPIME 0.5 GM in D5W 50 ML IV SCH ×2 (10:15→21:52)
[2020-03-30] MEDS: INSULIN GLARGINE 100 UNITS/ML 10 ML VIAL SUBCUT SCH (10:45)
[2020-03-30] MEDS: NACL 0.9% 1,000 ML IV SCH ×2 (10:48→22:02)
[2020-03-30] MEDS: INSULIN REGULAR, HUMAN 100 UNITS/ML, 10 ML VIAL (humuLIN R) SUBCUT PRN (18:19)
[2020-03-31] VITALS (22 sets, daily range): BP systolic 97–116
[2020-03-31] MEDS: INSULIN REGULAR, HUMAN 100 UNITS/ML, 10 ML VIAL (humuLIN R) SUBCUT PRN ×4 (00:50→23:34)
[2020-03-31] MEDS: NORMAL SALINE 5 ML DISP.SYRIN IVF SCH ×3 (05:40→22:52)
[2020-03-31] MEDS: NACL 0.9% 1,000 ML IV SCH ×2 (08:37→16:30)
[2020-03-31] MEDS: DEXAMETHASONE SOD PHOSPHATE 10 MG/ML VIAL IVP SCH (08:43)
[2020-03-31] MEDS: ENOXAPARIN SODIUM 40 MG/0.4 ML SYRINGE SUBCUT SCH (08:43)
[2020-03-31] MEDS: THIAMINE HCL 100 MG TABLET NG SCH (08:44)
[2020-03-31] MEDS: ASCORBIC ACID 500 MG TABLET NG SCH ×2 (08:44→22:15)
[2020-03-31] MEDS: CHOLECALCIFEROL (VITAMIN D3) 5,000 UNIT TABLET NG SCH (08:44)
[2020-03-31] MEDS: FAMOTIDINE PF 20 MG/2 ML VIAL IVP SCH ×2 (08:44→22:15)
[2020-03-31] MEDS: ATORVASTATIN 20 MG TABLET NG SCH (08:44)
[2020-03-31] MEDS: levETIRAcetam 500 MG in NS 100 ML IV SCH ×2 (08:45→22:15)
[2020-03-31] MEDS: metFORMIN HCL 500 MG TABLET NG SCH ×3 (08:45→22:15)
[2020-03-31] MEDS: MIDAZOLAM HCL IN 0.9 % NACL/PF 50 ML IV PRN ×3 (09:00→19:05)
[2020-03-31] MEDS: CEFEPIME 0.5 GM in D5W 50 ML IV SCH ×2 (09:36→22:15)
[2020-03-31] MEDS: INSULIN GLARGINE 100 UNITS/ML 10 ML VIAL SUBCUT SCH (09:39)
[2020-03-31] MEDS: MORPHINE I.V. DRIP 100 ML IV PRN (19:06)
[2020-04-01] VITALS (20 sets, daily range): BP systolic 98–151
[2020-04-01] MEDS: NACL 0.9% 1,000 ML IV SCH ×2 (03:05→12:29)
[2020-04-01] MEDS: NORMAL SALINE 5 ML DISP.SYRIN IVF SCH ×3 (05:46→22:28)
[2020-04-01] MEDS: MIDAZOLAM HCL IN 0.9 % NACL/PF 50 ML IV PRN ×3 (06:13→18:00)
[2020-04-01] MEDS: levETIRAcetam 500 MG in NS 100 ML IV SCH ×2 (10:03→20:58)
[2020-04-01] MEDS: FAMOTIDINE PF 20 MG/2 ML VIAL IVP SCH ×2 (10:03→20:58)
[2020-04-01] MEDS: CEFEPIME 0.5 GM in D5W 50 ML IV SCH ×2 (10:03→20:59)
[2020-04-01] MEDS: DEXAMETHASONE SOD PHOSPHATE 10 MG/ML VIAL IVP SCH (10:03)
[2020-04-01] MEDS: CHOLECALCIFEROL (VITAMIN D3) 5,000 UNIT TABLET NG SCH (10:04)
[2020-04-01] MEDS: ATORVASTATIN 20 MG TABLET NG SCH (10:04)
[2020-04-01] MEDS: ASCORBIC ACID 500 MG TABLET NG SCH ×2 (10:04→20:58)
[2020-04-01] MEDS: THIAMINE HCL 100 MG TABLET NG SCH (10:04)
[2020-04-01] MEDS: metFORMIN HCL 500 MG TABLET NG SCH ×3 (10:04→20:56)
[2020-04-01] MEDS: ENOXAPARIN SODIUM 40 MG/0.4 ML SYRINGE SUBCUT SCH (10:05)
[2020-04-01] MEDS: INSULIN GLARGINE 100 UNITS/ML 10 ML VIAL SUBCUT SCH (10:07)
[2020-04-01 11:04] LABS: BASOPHILS % (AUTO) 0.6 % (0.0-2.0); EOSINOPHILS % (AUTO) 0.1 % (0.0-4.0); HEMATOCRIT 31.8 % (36-54); HEMOGLOBIN 10.1 g/dL (14.0-18.0); LYMPHOCYTES # (AUTO) 0.7 K/uL (1.0-5.5); LYMPHOCYTES % (AUTO) 9.7 % (20.5-51.5); MEAN CORPUSCULAR HEMOGLOBIN 27 pg (27-31); MEAN CORPUSCULAR HGB CONC 32 % (32-36); MEAN CORPUSCULAR VOLUME 86 fL (79.0-98.0); MONOCYTES # (AUTO) 0.2 K/uL (0.0-1.0); MONOCYTES % (AUTO) 3.1 % (1.7-9.3); NEUTROPHILS # (AUTO) 5.9 K/uL (1.8-7.7); NEUTROPHILS % (AUTO) 86.5 % (40.0-70.0); PLATELET COUNT (AUTO) 154 K/uL (130-430); RED CELL DISTRIBUTION WIDTH 15.5 % (9.0-15.0); WHITE BLOOD COUNT (AUTO) 6.9 K/uL (4.8-10.8)
[2020-04-01 11:05] LABS: CALCIUM 8.1 mg/dL (8.4-11.0); CREATININE 1.1 mg/dL (0.55-1.30); POTASSIUM 5.4 mmol/L (3.5-5.1)
[2020-04-01] MEDS: MORPHINE I.V. DRIP 100 ML IV PRN (11:25)
[2020-04-01] MEDS: INSULIN REGULAR, HUMAN 100 UNITS/ML, 10 ML VIAL (humuLIN R) SUBCUT PRN ×3 (12:06→23:58)
[2020-04-01] MEDS: D5W 1,000 ML IV SCH ×2 (16:13→22:27)
[2020-04-02] VITALS (26 sets, daily range): BP systolic 102–123
[2020-04-02] MEDS: NORMAL SALINE 5 ML DISP.SYRIN IVF SCH ×3 (05:55→22:00)
[2020-04-02] MEDS: INSULIN REGULAR, HUMAN 100 UNITS/ML, 10 ML VIAL (humuLIN R) SUBCUT PRN ×3 (05:58→17:38)
[2020-04-02 07:12] LABS: BASOPHILS % (AUTO) 0.5 % (0.0-2.0); EOSINOPHILS % (AUTO) 0.2 % (0.0-4.0); HEMATOCRIT 30.9 % (36-54); HEMOGLOBIN 9.9 g/dL (14.0-18.0); LYMPHOCYTES % (AUTO) 13.2 % (20.5-51.5); MEAN CORPUSCULAR HEMOGLOBIN 28 pg (27-31); MEAN CORPUSCULAR HGB CONC 32 % (32-36); MEAN CORPUSCULAR VOLUME 86 fL (79.0-98.0); MONOCYTES # (AUTO) 0.3 K/uL (0.0-1.0); NEUTROPHILS # (AUTO) 6.3 K/uL (1.8-7.7); NEUTROPHILS % (AUTO) 82.1 % (40.0-70.0); PLATELET COUNT (AUTO) 161 K/uL (130-430); RED BLOOD CELL COUNT(AUTO) 3.59 MIL/uL (4.2-6.2); RED CELL DISTRIBUTION WIDTH 15.4 % (9.0-15.0); WHITE BLOOD COUNT (AUTO) 7.7 K/uL (4.8-10.8)
[2020-04-02 07:36] LABS: ALBUMIN 1.3 g/dL (3.4-4.8); CALCIUM 8.1 mg/dL (8.4-11.0); POTASSIUM 5.2 mmol/L (3.5-5.1); TOTAL BILIRUBIN 0.3 mg/dL (0.0-1.0)
[2020-04-02] MEDS: levETIRAcetam 500 MG in NS 100 ML IV SCH ×2 (08:21→21:00)
[2020-04-02] MEDS: FAMOTIDINE PF 20 MG/2 ML VIAL IVP SCH ×2 (08:22→21:00)
[2020-04-02] MEDS: metFORMIN HCL 500 MG TABLET NG SCH ×2 (08:23→15:19)
[2020-04-02] MEDS: ATORVASTATIN 20 MG TABLET NG SCH (08:24)
[2020-04-02] MEDS: ASCORBIC ACID 500 MG TABLET NG SCH ×2 (08:25→21:00)
[2020-04-02] MEDS: THIAMINE HCL 100 MG TABLET NG SCH (08:25)
[2020-04-02] MEDS: CHOLECALCIFEROL (VITAMIN D3) 5,000 UNIT TABLET NG SCH (08:26)
[2020-04-02] MEDS: ENOXAPARIN SODIUM 40 MG/0.4 ML SYRINGE SUBCUT SCH (08:28)
[2020-04-02] MEDS: D5W 1,000 ML IV SCH ×2 (08:52→22:00)
[2020-04-02] MEDS: INSULIN GLARGINE 100 UNITS/ML 10 ML VIAL SUBCUT SCH (09:53)
[2020-04-02] MEDS: CEFEPIME 0.5 GM in D5W 50 ML IV SCH ×2 (09:54→21:00)
[2020-04-02] MEDS: DEXAMETHASONE SOD PHOSPHATE 10 MG/ML VIAL IVP SCH (09:54)
[2020-04-02] MEDS: MIDAZOLAM HCL IN 0.9 % NACL/PF 50 ML IV PRN (12:39)
[2020-04-02] MEDS: MORPHINE I.V. DRIP 100 ML IV PRN (15:52)
[2020-04-02] MEDS: VANCOMYCIN HCL 1,250 MG in NS 250 ML IV SCH (21:00)
[2020-04-03] VITALS (29 sets, daily range): BP systolic 103–138
[2020-04-03] MEDS: INSULIN REGULAR, HUMAN 100 UNITS/ML, 10 ML VIAL (humuLIN R) SUBCUT PRN ×4 (01:01→23:33)
[2020-04-03 05:36] LABS: BASOPHILS # (AUTO) 0.1 K/uL (0.0-0.2); BASOPHILS % (AUTO) 0.8 % (0.0-2.0); EOSINOPHILS # (AUTO) 0.2 K/uL (0.0-0.4); EOSINOPHILS % (AUTO) 2.3 % (0.0-4.0); HEMATOCRIT 33.9 % (36-54); HEMOGLOBIN 10.7 g/dL (14.0-18.0); LYMPHOCYTES # (AUTO) 1.2 K/uL (1.0-5.5); LYMPHOCYTES % (AUTO) 12.9 % (20.5-51.5); MEAN CORPUSCULAR HEMOGLOBIN 27 pg (27-31); MEAN CORPUSCULAR HGB CONC 32 % (32-36); MEAN CORPUSCULAR VOLUME 85 fL (79.0-98.0); MONOCYTES # (AUTO) 0.3 K/uL (0.0-1.0); MONOCYTES % (AUTO) 2.8 % (1.7-9.3); NEUTROPHILS # (AUTO) 7.8 K/uL (1.8-7.7); NEUTROPHILS % (AUTO) 81.2 % (40.0-70.0); PLATELET COUNT (AUTO) 182 K/uL (130-430); RED BLOOD CELL COUNT(AUTO) 3.97 MIL/uL (4.2-6.2); RED CELL DISTRIBUTION WIDTH 14.6 % (9.0-15.0); WHITE BLOOD COUNT (AUTO) 9.6 K/uL (4.8-10.8)
[2020-04-03 07:21] LABS: ALBUMIN 1.3 g/dL (3.4-4.8); CREATININE 0.99 mg/dL (0.55-1.30); POTASSIUM 4.8 mmol/L (3.5-5.1); TOTAL BILIRUBIN 0.3 mg/dL (0.0-1.0)
[2020-04-03] MEDS: ASCORBIC ACID 500 MG TABLET NG SCH ×2 (08:42→21:38)
[2020-04-03] MEDS: DEXAMETHASONE SOD PHOSPHATE 10 MG/ML VIAL IVP SCH (08:42)
[2020-04-03] MEDS: THIAMINE HCL 100 MG TABLET NG SCH (08:42)
[2020-04-03] MEDS: FAMOTIDINE PF 20 MG/2 ML VIAL IVP SCH ×2 (08:43→21:38)
[2020-04-03] MEDS: ATORVASTATIN 20 MG TABLET NG SCH (08:43)
[2020-04-03] MEDS: CHOLECALCIFEROL (VITAMIN D3) 5,000 UNIT TABLET NG SCH (08:43)
[2020-04-03] MEDS: levETIRAcetam 500 MG in NS 100 ML IV SCH ×2 (08:44→21:38)
[2020-04-03] MEDS: INSULIN GLARGINE 100 UNITS/ML 10 ML VIAL SUBCUT SCH (09:10)
[2020-04-03] MEDS: ENOXAPARIN SODIUM 40 MG/0.4 ML SYRINGE SUBCUT SCH (09:11)
[2020-04-03] MEDS: D5W 1,000 ML IV SCH ×2 (10:20→17:15)
[2020-04-03] MEDS: CEFEPIME 0.5 GM in D5W 50 ML IV SCH ×2 (11:00→21:38)
[2020-04-03] MEDS: VANCOMYCIN HCL 1,000 MG in NS 250 ML IV SCH (14:44)
[2020-04-03] MEDS: NORMAL SALINE 5 ML DISP.SYRIN IVF SCH ×2 (15:26→21:39)
[2020-04-03] MEDS ORDERED: NALOXONE HCL 0.4 MG/ML AMP (NARCAN) IVP PRN (16:30)
[2020-04-03] MEDS: MORPHINE I.V. DRIP 100 ML IV PRN (18:33)
[2020-04-03] MEDS: MIDAZOLAM HCL IN 0.9 % NACL/PF 50 ML IV PRN (21:32)
[2020-04-04] VITALS (29 sets, daily range): BP systolic 97–121
[2020-04-04] MEDS: VANCOMYCIN HCL 1,000 MG in NS 250 ML IV SCH ×2 (03:00→16:15)
[2020-04-04] MEDS: D5W 1,000 ML IV SCH ×3 (03:15→14:00)
[2020-04-04] MEDS: INSULIN REGULAR, HUMAN 100 UNITS/ML, 10 ML VIAL (humuLIN R) SUBCUT PRN (05:29)
[2020-04-04] MEDS: NORMAL SALINE 5 ML DISP.SYRIN IVF SCH ×3 (05:29→20:58)
[2020-04-04] MEDS: THIAMINE HCL 100 MG TABLET NG SCH (11:00)
[2020-04-04] MEDS: ATORVASTATIN 20 MG TABLET NG SCH (11:00)
[2020-04-04] MEDS: CEFEPIME 0.5 GM in D5W 50 ML IV SCH ×2 (11:00→20:58)
[2020-04-04] MEDS: CHOLECALCIFEROL (VITAMIN D3) 5,000 UNIT TABLET NG SCH (11:00)
[2020-04-04] MEDS: ASCORBIC ACID 500 MG TABLET NG SCH ×2 (11:00→20:58)
[2020-04-04] MEDS: FAMOTIDINE PF 20 MG/2 ML VIAL IVP SCH ×2 (11:00→20:58)
[2020-04-04] MEDS: levETIRAcetam 500 MG in NS 100 ML IV SCH ×2 (11:00→20:58)
[2020-04-04] MEDS: ENOXAPARIN SODIUM 40 MG/0.4 ML SYRINGE SUBCUT SCH (11:00)
[2020-04-04] MEDS: INSULIN GLARGINE 100 UNITS/ML 10 ML VIAL SUBCUT SCH (11:00)
[2020-04-04] MEDS: DEXAMETHASONE SOD PHOSPHATE 10 MG/ML VIAL IVP SCH (11:00)
[2020-04-04] MEDS: MIDAZOLAM HCL IN 0.9 % NACL/PF 50 ML IV PRN (11:03)
[2020-04-05] VITALS (16 sets, daily range): BP systolic 100–117
[2020-04-05] MEDS: INSULIN REGULAR, HUMAN 100 UNITS/ML, 10 ML VIAL (humuLIN R) SUBCUT PRN ×4 (00:38→23:30)
[2020-04-05] MEDS: MIDAZOLAM HCL IN 0.9 % NACL/PF 50 ML IV PRN ×3 (01:04→23:52)
[2020-04-05] MEDS: VANCOMYCIN HCL 1,000 MG in NS 250 ML IV SCH ×2 (04:23→15:06)
[2020-04-05] MEDS: NORMAL SALINE 5 ML DISP.SYRIN IVF SCH ×3 (05:00→20:30)
[2020-04-05] MEDS: MORPHINE I.V. DRIP 100 ML IV PRN (08:49)
[2020-04-05] MEDS: levETIRAcetam 500 MG in NS 100 ML IV SCH ×2 (09:00→20:30)
[2020-04-05] MEDS: ENOXAPARIN SODIUM 40 MG/0.4 ML SYRINGE SUBCUT SCH (09:00)
[2020-04-05] MEDS: INSULIN GLARGINE 100 UNITS/ML 10 ML VIAL SUBCUT SCH (09:00)
[2020-04-05] MEDS: THIAMINE HCL 100 MG TABLET NG SCH (09:00)
[2020-04-05] MEDS: ASCORBIC ACID 500 MG TABLET NG SCH ×2 (10:40→20:30)
[2020-04-05] MEDS: CHOLECALCIFEROL (VITAMIN D3) 5,000 UNIT TABLET NG SCH (10:40)
[2020-04-05] MEDS: ATORVASTATIN 20 MG TABLET NG SCH (10:40)
[2020-04-05] MEDS: FAMOTIDINE PF 20 MG/2 ML VIAL IVP SCH ×2 (10:41→20:30)
[2020-04-05] MEDS: DEXAMETHASONE SOD PHOSPHATE 10 MG/ML VIAL IVP SCH (10:41)
[2020-04-05] MEDS: CEFEPIME 0.5 GM in D5W 50 ML IV SCH ×2 (10:42→20:30)
[2020-04-05 12:22] LABS: BASOPHILS # (AUTO) 0.1 K/uL (0.0-0.2); BASOPHILS % (AUTO) 0.9 % (0.0-2.0); EOSINOPHILS # (AUTO) 0.1 K/uL (0.0-0.4); EOSINOPHILS % (AUTO) 1.6 % (0.0-4.0); HEMATOCRIT 31.9 % (36-54); HEMOGLOBIN 10.3 g/dL (14.0-18.0); LYMPHOCYTES # (AUTO) 0.9 K/uL (1.0-5.5); LYMPHOCYTES % (AUTO) 11.2 % (20.5-51.5); MEAN CORPUSCULAR HEMOGLOBIN 27 pg (27-31); MEAN CORPUSCULAR HGB CONC 32 % (32-36); MEAN CORPUSCULAR VOLUME 84 fL (79.0-98.0); MONOCYTES # (AUTO) 0.2 K/uL (0.0-1.0); MONOCYTES % (AUTO) 2.9 % (1.7-9.3); NEUTROPHILS # (AUTO) 7.1 K/uL (1.8-7.7); NEUTROPHILS % (AUTO) 83.4 % (40.0-70.0); PLATELET COUNT (AUTO) 183 K/uL (130-430); RED BLOOD CELL COUNT(AUTO) 3.78 MIL/uL (4.2-6.2); RED CELL DISTRIBUTION WIDTH 14.2 % (9.0-15.0); WHITE BLOOD COUNT (AUTO) 8.4 K/uL (4.8-10.8)
[2020-04-05 12:29] LABS: CALCIUM 8.2 mg/dL (8.4-11.0); CREATININE 0.94 mg/dL (0.55-1.30); POTASSIUM 4.8 mmol/L (3.5-5.1)
[2020-04-05] MEDS: D5W 1,000 ML IV SCH ×2 (15:00→20:31)
[2020-04-06] VITALS (26 sets, daily range): BP systolic 102–154
[2020-04-06] MEDS: VANCOMYCIN HCL 1,000 MG in NS 250 ML IV SCH ×2 (03:09→15:00)
[2020-04-06] MEDS: D5W 1,000 ML IV SCH (05:18)
[2020-04-06] MEDS: NORMAL SALINE 5 ML DISP.SYRIN IVF SCH ×3 (05:51→21:13)
[2020-04-06 06:24] LABS: BASOPHILS % (AUTO) 0.3 % (0.0-2.0); EOSINOPHILS % (AUTO) 0.3 % (0.0-4.0); HEMATOCRIT 30.2 % (36-54); HEMOGLOBIN 9.8 g/dL (14.0-18.0); MEAN CORPUSCULAR HEMOGLOBIN 27 pg (27-31); MEAN CORPUSCULAR HGB CONC 33 % (32-36); MEAN CORPUSCULAR VOLUME 83 fL (79.0-98.0); MONOCYTES # (AUTO) 0.3 K/uL (0.0-1.0); MONOCYTES % (AUTO) 4.3 % (1.7-9.3); NEUTROPHILS # (AUTO) 6.7 K/uL (1.8-7.7); NEUTROPHILS % (AUTO) 83.1 % (40.0-70.0); PLATELET COUNT (AUTO) 210 K/uL (130-430); RED BLOOD CELL COUNT(AUTO) 3.64 MIL/uL (4.2-6.2); RED CELL DISTRIBUTION WIDTH 14.3 % (9.0-15.0); WHITE BLOOD COUNT (AUTO) 8.1 K/uL (4.8-10.8)
[2020-04-06 07:00] LABS: CALCIUM 8.1 mg/dL (8.4-11.0); CHLORIDE 106 mmol/L (98-107); CREATININE 0.89 mg/dL (0.55-1.30); GLUCOSE 212 mg/dL (70-99); POTASSIUM 4.6 mmol/L (3.5-5.1); SODIUM SERUM 139 mmol/L (136-145); UREA NITROGEN, BLOOD 28 mg/dL (8-21)
[2020-04-06] MEDS: INSULIN REGULAR, HUMAN 100 UNITS/ML, 10 ML VIAL (humuLIN R) SUBCUT PRN ×3 (07:09→23:39)
[2020-04-06 08:22] LABS: GFR AFRICAN AMERICAN 109 mL/min (>90)
[2020-04-06 08:24] LABS: ANION GAP < 3 (5-15)
[2020-04-06] MEDS: CEFEPIME 0.5 GM in D5W 50 ML IV SCH ×2 (09:00→21:10)
[2020-04-06] MEDS: CHOLECALCIFEROL (VITAMIN D3) 5,000 UNIT TABLET NG SCH (09:29)
[2020-04-06] MEDS: FAMOTIDINE PF 20 MG/2 ML VIAL IVP SCH ×2 (09:29→21:11)
[2020-04-06] MEDS: ATORVASTATIN 20 MG TABLET NG SCH (09:29)
[2020-04-06] MEDS: levETIRAcetam 500 MG in NS 100 ML IV SCH ×2 (09:29→21:09)
[2020-04-06] MEDS: ASCORBIC ACID 500 MG TABLET NG SCH ×2 (09:30→21:12)
[2020-04-06] MEDS: DEXAMETHASONE SOD PHOSPHATE 10 MG/ML VIAL IVP SCH (09:30)
[2020-04-06] MEDS: THIAMINE HCL 100 MG TABLET NG SCH (09:30)
[2020-04-06] MEDS: ENOXAPARIN SODIUM 40 MG/0.4 ML SYRINGE SUBCUT SCH (09:46)
[2020-04-06] MEDS: INSULIN GLARGINE 100 UNITS/ML 10 ML VIAL SUBCUT SCH (09:56)
[2020-04-06] MEDS ORDERED: IPRATROPIUM/ALBUTEROL SULFATE 3 ML AMPUL.NEB (DUONEB) ONE (11:42)
[2020-04-07] VITALS (30 sets, daily range): BP systolic 106–146
[2020-04-07] MEDS: VANCOMYCIN HCL 1,000 MG in NS 250 ML IV SCH ×2 (02:59→15:00)
[2020-04-07] MEDS: NORMAL SALINE 5 ML DISP.SYRIN IVF SCH ×3 (06:03→22:00)
[2020-04-07] MEDS: INSULIN REGULAR, HUMAN 100 UNITS/ML, 10 ML VIAL (humuLIN R) SUBCUT PRN ×3 (06:14→18:11)
[2020-04-07 06:43] LABS: BASOPHILS % (AUTO) 0.4 % (0.0-2.0); EOSINOPHILS # (AUTO) 0.1 K/uL (0.0-0.4); EOSINOPHILS % (AUTO) 0.7 % (0.0-4.0); HEMATOCRIT 31.5 % (36-54); HEMOGLOBIN 10.3 g/dL (14.0-18.0); MEAN CORPUSCULAR HEMOGLOBIN 27 pg (27-31); MEAN CORPUSCULAR HGB CONC 33 % (32-36); MEAN CORPUSCULAR VOLUME 83 fL (79.0-98.0); MONOCYTES # (AUTO) 0.3 K/uL (0.0-1.0); MONOCYTES % (AUTO) 3.6 % (1.7-9.3); NEUTROPHILS # (AUTO) 7.3 K/uL (1.8-7.7); NEUTROPHILS % (AUTO) 84.3 % (40.0-70.0); PLATELET COUNT (AUTO) 237 K/uL (130-430); RED BLOOD CELL COUNT(AUTO) 3.78 MIL/uL (4.2-6.2); RED CELL DISTRIBUTION WIDTH 14.3 % (9.0-15.0); WHITE BLOOD COUNT (AUTO) 8.7 K/uL (4.8-10.8)
[2020-04-07 08:09] LABS: CREATININE 0.82 mg/dL (0.55-1.30); POTASSIUM 4.2 mmol/L (3.5-5.1)
[2020-04-07] MEDS: ASCORBIC ACID 500 MG TABLET NG SCH ×2 (10:07→21:06)
[2020-04-07] MEDS: levETIRAcetam 500 MG in NS 100 ML IV SCH ×2 (10:07→21:06)
[2020-04-07] MEDS: CHOLECALCIFEROL (VITAMIN D3) 5,000 UNIT TABLET NG SCH (10:07)
[2020-04-07] MEDS: ATORVASTATIN 20 MG TABLET NG SCH (10:08)
[2020-04-07] MEDS: FAMOTIDINE PF 20 MG/2 ML VIAL IVP SCH ×2 (10:08→21:00)
[2020-04-07] MEDS: THIAMINE HCL 100 MG TABLET NG SCH (10:08)
[2020-04-07] MEDS: DEXAMETHASONE SOD PHOSPHATE 10 MG/ML VIAL IVP SCH (10:10)
[2020-04-07] MEDS: ENOXAPARIN SODIUM 40 MG/0.4 ML SYRINGE SUBCUT SCH (10:12)
[2020-04-07] MEDS: MIDAZOLAM HCL IN 0.9 % NACL/PF 50 ML IV PRN ×2 (10:27→23:03)
[2020-04-07] MEDS: INSULIN GLARGINE 100 UNITS/ML 10 ML VIAL SUBCUT SCH (10:29)
[2020-04-07] MEDS: CEFEPIME 0.5 GM in D5W 50 ML IV SCH ×2 (10:30→21:08)
[2020-04-07] MEDS: D5W 1,000 ML IV SCH ×3 (10:32→12:30)
[2020-04-07] MEDS: MORPHINE I.V. DRIP 100 ML IV PRN (17:19)
[2020-04-08] VITALS (26 sets, daily range): BP systolic 101–175
[2020-04-08] MEDS: INSULIN REGULAR, HUMAN 100 UNITS/ML, 10 ML VIAL (humuLIN R) SUBCUT PRN ×3 (01:45→17:26)
[2020-04-08] MEDS: VANCOMYCIN HCL 1,000 MG in NS 250 ML IV SCH (02:40)
[2020-04-08 05:51] LABS: CALCIUM 9.1 mg/dL (8.4-11.0); CREATININE 0.9 mg/dL (0.55-1.30); POTASSIUM 3.8 mmol/L (3.5-5.1)
[2020-04-08] MEDS: NORMAL SALINE 5 ML DISP.SYRIN IVF SCH ×2 (06:30→14:00)
[2020-04-08 06:50] LABS: BASOPHILS # (AUTO) 0.1 K/uL (0.0-0.2); BASOPHILS % (AUTO) 0.6 % (0.0-2.0); EOSINOPHILS # (AUTO) 0.1 K/uL (0.0-0.4); HEMATOCRIT 33.8 % (36-54); LYMPHOCYTES # (AUTO) 1.7 K/uL (1.0-5.5); LYMPHOCYTES % (AUTO) 17.2 % (20.5-51.5); MEAN CORPUSCULAR HEMOGLOBIN 27 pg (27-31); MEAN CORPUSCULAR HGB CONC 33 % (32-36); MEAN CORPUSCULAR VOLUME 83 fL (79.0-98.0); MONOCYTES # (AUTO) 0.3 K/uL (0.0-1.0); MONOCYTES % (AUTO) 3.5 % (1.7-9.3); NEUTROPHILS # (AUTO) 7.9 K/uL (1.8-7.7); NEUTROPHILS % (AUTO) 77.7 % (40.0-70.0); PLATELET COUNT (AUTO) 306 K/uL (130-430); RED BLOOD CELL COUNT(AUTO) 4.06 MIL/uL (4.2-6.2); RED CELL DISTRIBUTION WIDTH 14.4 % (9.0-15.0); WHITE BLOOD COUNT (AUTO) 10.1 K/uL (4.8-10.8)
[2020-04-08] MEDS: CEFEPIME 0.5 GM in D5W 50 ML IV SCH ×2 (09:59→20:38)
[2020-04-08] MEDS: levETIRAcetam 500 MG in NS 100 ML IV SCH ×2 (09:59→20:34)
[2020-04-08] MEDS: MIDAZOLAM HCL IN 0.9 % NACL/PF 50 ML IV PRN ×2 (10:00→23:42)
[2020-04-08] MEDS: ENOXAPARIN SODIUM 40 MG/0.4 ML SYRINGE SUBCUT SCH (13:03)
[2020-04-08] MEDS: DEXAMETHASONE SOD PHOSPHATE 10 MG/ML VIAL IVP SCH (13:07)
[2020-04-08] MEDS: INSULIN GLARGINE 100 UNITS/ML 10 ML VIAL SUBCUT SCH (13:07)
[2020-04-08] MEDS: FAMOTIDINE PF 20 MG/2 ML VIAL IVP SCH ×3 (13:08→21:00)
[2020-04-08] MEDS: THIAMINE HCL 100 MG TABLET NG SCH (13:08)
[2020-04-08] MEDS: ASCORBIC ACID 500 MG TABLET NG SCH ×2 (13:08→20:34)
[2020-04-08] MEDS: ATORVASTATIN 20 MG TABLET NG SCH (13:09)
[2020-04-08] MEDS: CHOLECALCIFEROL (VITAMIN D3) 5,000 UNIT TABLET NG SCH (13:09)
[2020-04-08] MEDS ORDERED: VANCOMYCIN HCL 1,000 MG in D5W 250 ML IV SCH (14:10)
[2020-04-08] MEDS: VANCOMYCIN HCL 1,000 MG in D5W 250 ML IV SCH (15:52)
[2020-04-08] MEDS: MORPHINE I.V. DRIP 100 ML IV PRN (20:39)
[2020-04-09] VITALS (27 sets, daily range): BP systolic 88–168
[2020-04-09] MEDS: INSULIN REGULAR, HUMAN 100 UNITS/ML, 10 ML VIAL (humuLIN R) SUBCUT PRN ×4 (00:19→17:31)
[2020-04-09] MEDS: D5W 1,000 ML IV SCH ×2 (03:15→13:15)
[2020-04-09] MEDS: VANCOMYCIN HCL 1,000 MG in D5W 250 ML IV SCH ×2 (03:22→14:40)
[2020-04-09 06:35] LABS: BASOPHILS % (AUTO) 0.5 % (0.0-2.0); EOSINOPHILS % (AUTO) 0.5 % (0.0-4.0); HEMOGLOBIN 11.7 g/dL (14.0-18.0); LYMPHOCYTES # (AUTO) 1.2 K/uL (1.0-5.5); LYMPHOCYTES % (AUTO) 12.4 % (20.5-51.5); MEAN CORPUSCULAR HEMOGLOBIN 27 pg (27-31); MEAN CORPUSCULAR HGB CONC 32 % (32-36); MEAN CORPUSCULAR VOLUME 83 fL (79.0-98.0); MONOCYTES # (AUTO) 0.4 K/uL (0.0-1.0); MONOCYTES % (AUTO) 3.7 % (1.7-9.3); NEUTROPHILS % (AUTO) 82.9 % (40.0-70.0); PLATELET COUNT (AUTO) 320 K/uL (130-430); RED BLOOD CELL COUNT(AUTO) 4.33 MIL/uL (4.2-6.2); RED CELL DISTRIBUTION WIDTH 14.7 % (9.0-15.0); WHITE BLOOD COUNT (AUTO) 9.7 K/uL (4.8-10.8)
[2020-04-09 06:50] LABS: CALCIUM 8.9 mg/dL (8.4-11.0); CREATININE 0.93 mg/dL (0.55-1.30); POTASSIUM 4.3 mmol/L (3.5-5.1)
[2020-04-09] MEDS: levETIRAcetam 500 MG in NS 100 ML IV SCH ×2 (09:37→19:59)
[2020-04-09] MEDS: DEXAMETHASONE SOD PHOSPHATE 10 MG/ML VIAL IVP SCH (09:38)
[2020-04-09] MEDS: ASCORBIC ACID 500 MG TABLET NG SCH ×2 (09:38→20:00)
[2020-04-09] MEDS: ENOXAPARIN SODIUM 40 MG/0.4 ML SYRINGE SUBCUT SCH (09:38)
[2020-04-09] MEDS: THIAMINE HCL 100 MG TABLET NG SCH (09:38)
[2020-04-09] MEDS: ATORVASTATIN 20 MG TABLET NG SCH (09:39)
[2020-04-09] MEDS: CEFEPIME 0.5 GM in D5W 50 ML IV SCH ×2 (09:39→20:00)
[2020-04-09] MEDS: CHOLECALCIFEROL (VITAMIN D3) 5,000 UNIT TABLET NG SCH (09:39)
[2020-04-09] MEDS: INSULIN GLARGINE 100 UNITS/ML 10 ML VIAL SUBCUT SCH (09:41)
[2020-04-09] MEDS: MIDAZOLAM HCL IN 0.9 % NACL/PF 50 ML IV PRN ×2 (12:48→18:29)
[2020-04-09] MEDS: NORMAL SALINE 5 ML DISP.SYRIN IVF SCH ×2 (14:34→22:00)
[2020-04-09] MEDS: MORPHINE I.V. DRIP 100 ML IV PRN (18:29)
[2020-04-09] MEDS: FAMOTIDINE PF 20 MG/2 ML VIAL IVP SCH (20:00)
[2020-04-10] VITALS (28 sets, daily range): BP systolic 89–140
[2020-04-10] MEDS: INSULIN REGULAR, HUMAN 100 UNITS/ML, 10 ML VIAL (humuLIN R) SUBCUT PRN ×4 (00:44→18:32)
[2020-04-10] MEDS: VANCOMYCIN HCL 1,000 MG in D5W 250 ML IV SCH ×2 (02:59→14:36)
[2020-04-10] MEDS: NORMAL SALINE 5 ML DISP.SYRIN IVF SCH ×3 (06:00→22:00)
[2020-04-10] MEDS: FAMOTIDINE PF 20 MG/2 ML VIAL IVP SCH ×2 (08:17→21:00)
[2020-04-10] MEDS: ATORVASTATIN 20 MG TABLET NG SCH (08:17)
[2020-04-10] MEDS: ASCORBIC ACID 500 MG TABLET NG SCH ×2 (08:17→21:00)
[2020-04-10] MEDS: DEXAMETHASONE SOD PHOSPHATE 10 MG/ML VIAL IVP SCH (08:17)
[2020-04-10] MEDS: levETIRAcetam 500 MG in NS 100 ML IV SCH ×2 (08:17→21:00)
[2020-04-10] MEDS: THIAMINE HCL 100 MG TABLET NG SCH (08:17)
[2020-04-10] MEDS: CHOLECALCIFEROL (VITAMIN D3) 5,000 UNIT TABLET NG SCH (08:18)
[2020-04-10] MEDS: INSULIN GLARGINE 100 UNITS/ML 10 ML VIAL SUBCUT SCH (08:18)
[2020-04-10] MEDS: ENOXAPARIN SODIUM 40 MG/0.4 ML SYRINGE SUBCUT SCH (08:27)
[2020-04-10] MEDS: CEFEPIME 0.5 GM in D5W 50 ML IV SCH ×2 (09:56→21:30)
[2020-04-10] MEDS: MORPHINE I.V. DRIP 100 ML IV PRN (11:05)
[2020-04-11] VITALS (16 sets, daily range): BP systolic 105–127
[2020-04-11] MEDS: INSULIN REGULAR, HUMAN 100 UNITS/ML, 10 ML VIAL (humuLIN R) SUBCUT PRN ×3 (00:11→11:36)
[2020-04-11] MEDS: VANCOMYCIN HCL 1,000 MG in D5W 250 ML IV SCH (03:00)
[2020-04-11] MEDS: NORMAL SALINE 5 ML DISP.SYRIN IVF SCH (07:00)
[2020-04-11] MEDS: CEFEPIME 0.5 GM in D5W 50 ML IV SCH (09:07)
[2020-04-11] MEDS: FAMOTIDINE PF 20 MG/2 ML VIAL IVP SCH (09:07)
[2020-04-11] MEDS: levETIRAcetam 500 MG in NS 100 ML IV SCH (09:07)
[2020-04-11] MEDS: DEXAMETHASONE SOD PHOSPHATE 10 MG/ML VIAL IVP SCH (09:07)
[2020-04-11] MEDS: INSULIN GLARGINE 100 UNITS/ML 10 ML VIAL SUBCUT SCH (09:08)
[2020-04-11] MEDS: ATORVASTATIN 20 MG TABLET NG SCH (09:08)
[2020-04-11] MEDS: ENOXAPARIN SODIUM 40 MG/0.4 ML SYRINGE SUBCUT SCH (09:08)
[2020-04-11] MEDS: THIAMINE HCL 100 MG TABLET NG SCH (09:08)
[2020-04-11] MEDS: ASCORBIC ACID 500 MG TABLET NG SCH (09:08)
[2020-04-11] MEDS: CHOLECALCIFEROL (VITAMIN D3) 5,000 UNIT TABLET NG SCH (09:08)
[2020-04-11] MEDS: MORPHINE I.V. DRIP 100 ML IV PRN (14:15)
== END 2020-04-11 16:00 | disposition expired | DRG 870 ==
LOC: SED 05:06 → SIC 06:37
PROVIDERS: ADMIT Internal Medicine Hospice and Palliative Medicine; ATTEND Internal Medicine Hospice and Palliative Medicine
PROC: 5A09557 Assistance with Respiratory Ventilation, Greater than 96 Consecutive Hours, Continuous Positive Airway Pressure (ICD-10-PCS; 2020-03-20)
PROC: XW13325 Transfusion of Convalescent Plasma (Nonautologous) into Peripheral Vein, Percutaneous Approach, New Technology Group 5 (ICD-10-PCS; 2020-03-21)
PROC: 02HV33Z Insertion of Infusion Device into Superior Vena Cava, Percutaneous Approach (ICD-10-PCS; 2020-03-24)
PROC: B548ZZA Ultrasonography of Superior Vena Cava, Guidance (ICD-10-PCS; 2020-03-24)
PROC: 5A1955Z Respiratory Ventilation, Greater than 96 Consecutive Hours (ICD-10-PCS; principal; 2020-03-25)
PROC: 0BH17EZ Insertion of Endotracheal Airway into Trachea, Via Natural or Artificial Opening (ICD-10-PCS; 2020-03-25)
PROC: 5A1935Z Respiratory Ventilation, Less than 24 Consecutive Hours (ICD-10-PCS; 2020-03-25)
PROC: 5A09357 Assistance with Respiratory Ventilation, Less than 24 Consecutive Hours, Continuous Positive Airway Pressure (ICD-10-PCS; 2020-03-25)
DX: A41.9 Sepsis, unspecified organism (principal); U07.1 COVID-19; J12.82 Pneumonia due to coronavirus disease 2019; J15.9 Unspecified bacterial pneumonia; J80 Acute respiratory distress syndrome; R65.21 Severe sepsis with septic shock; J81.1 Chronic pulmonary edema; N39.0 Urinary tract infection, site not specified; N17.9 Acute kidney failure, unspecified; J93.9 Pneumothorax, unspecified; E87.0 Hyperosmolality and hypernatremia; E11.9 Type 2 diabetes mellitus without complications; E78.5 Hyperlipidemia, unspecified; I10 Essential (primary) hypertension; R31.0 Gross hematuria; Z79.01 Long term (current) use of anticoagulants; Z82.49 Family history of ischemic heart disease and other diseases of the circulatory system; Z88.0 Allergy status to penicillin
CPT/HCPCS: 36415; 36600; 71045; 76770; 80048; 80053; 80202-TC; 82550-TC; 82803-TC; 82962; 83036; 83605; 83735-TC; 83880; 84100-TC; 84484; 85025; 85379; 85610-TC; 85730-TC; 86140; 86886; 86900; 86901; 87040-TC; 87070-TC; 87205-TC; 93005; 94003; 94660; 95816; 96365; 97110-GP; 97116-GP; 99285; J0692; J1100; J1630; J1650; J1815; J1953; J1956; J2060; J2185; J2270; J2704; J3370; J3490; J7030; J7040; J7042; J7050; J7060; P9017